=== PATIENT | male | born 1950 | race Caucasian/White ===

== ENCOUNTER 2019-06-30 12:59 | Emergency (ER) | payer OTHER ==
[2019-06-30] MEDS ORDERED: NA CHLORIDE 0.9% 500 ML ONE (13:21)
[2019-06-30 13:38] LABS: Urine Blood TRACE (NEG); Urine Glucose NEGATIVE (NEG); Urine Protein 1+ (NEG); Urine Specific Gravity 1.025 (1.005-1.030)
--- NOTE | 2019-06-30 14:00 | RAD REPORT ---
EXAM DESCRIPTION: CT - Ct Stroke Brain Wo Cont - 06/30/2019 1:33 pm CLINICAL HISTORY: Vertigo COMPARISON: 2017 TECHNIQUE: Computed axial tomography of the head was obtained. All CT scans are performed using dose optimization technique as appropriate and may include automated exposure control or mA/KV adjustment according to patient size. FINDINGS: An intracranial bleed is not seen . The ventricles are mildly more prominent than on the prior exam. Prominent cerebral atrophy is also s een. No extra-axial fluid collection is noted. Mild to moderate low-density within periventricular white matter likely ischemic changes secondary to small vessel disease Fluid within the sinuses/ mastoids is not seen. IMPRESSION: Ventricles are mildly more prominent on the prior exam. This may simply be secondary to progression in white matter atrophy. Normal pressure hydrocephalus can also result in this appearance should be correlated clinically. Dr Andersen of the emergency room was notified at 1:41 p.m. on 06/30/2019
[2019-06-30 14:02] LABS: Absolute Lymphocytes (CBC) 1.6 K/uL (0.7-4.9); Basophils % 0.7 % (0-1.3); Hematocrit 43.2 % (39.6-49.0); Lymphocytes % 19.7 % (15.3-44.8); MPV 10.1 fL (7.6-11.3); RBC Red Blood Cell Count 4.36 M/uL (4.33-5.43)
[2019-06-30 14:04] LABS: Protime INR 1.04
[2019-06-30 14:15] LABS: ALT/SGPT 23 U/L (12-78); AST/SGOT 29 U/L (15-37); Albumin 3.8 g/dL (3.4-5.0); Alkaline Phosphatase 58 U/L (45-117); BUN Blood Urea Nitrogen 9 mg/dL (7-18); Bicarbonate 29 mmol/L (21-32); Bilirubin Direct 0.2 mg/dL (0-0.2); Bilirubin Total 0.9 mg/dL (0.2-1.0); Glucose Level 159 mg/dL (74-106); Lipase 195 U/L (73-393); Magnesium 2.1 mg/dL (1.8-2.4); Potassium 3.7 mmol/L (3.5-5.1); Protein, Total 7.7 g/dL (6.4-8.2); Sodium Level 140 mmol/L (136-145); Troponin (Emerg Dept Use Only) < 0.02 ng/mL (0.0-0.045)
--- NOTE | 2019-06-30 14:19 | RAD REPORT ---
EXAM DESCRIPTION: Marielos Single View06/30/2019 1:54 pm CLINICAL HISTORY: Hypertension COMPARISON: none FINDINGS: The lungs appear clear of acute infiltrate. The heart is normal size IMPRESSION: No acute abnormalities displayed
[2019-06-30 14:53] LABS: Urine Amorphous Sediment 2+ /HPF (NONE SEEN); Urine Bacteria 20-50 /HPF (NONE SEEN); Urine Culture Reflex Order REFLEXED; Urine Mucus 3+ /HPF (NONE SEEN); Urine RBC <5 /HPF (NONE SEEN)
--- NOTE | 2019-06-30 15:25 | RAD REPORT ---
EXAM DESCRIPTION: CTHead angio06/30/2019 3:06 pm CLINICAL HISTORY: Vascular dementia/dizziness/confusion/possible CVA COMPARISON: None TECHNIQUE: CT angiogram of the head was obtained. 3D MIPS reconstruction performed. All CT scans are performed using dose optimization technique as appropriate and may include automated exposure control or mA/KV adjustment according to patient size. FINDINGS: The basilar tip is bulbous. Internal carotid, anterior cerebral, middle cerebral and posterior cerebral arteries are normal calib er. An aneurysm is not seen. A significant stenosis is not noted. IMPRESSION: No significant abnormalities displayed.
--- NOTE | 2019-06-30 15:30 | RAD REPORT ---
EXAM DESCRIPTION: Alonzo Angio06/30/2019 3:05 pm CLINICAL HISTORY: Vascular dementia/dizziness/confusion/possible CVA COMPARISON: None TECHNIQUE: 50 cc Isovue 370 was administered intravenously. 3D MIP reconstruction performed All CT scans are performed using dose optimization technique as appropriate and may include automated exposure control or mA/KV adjustment according to patient size. FINDINGS: Mild plaque within the common carotid, internal carotid and external carotid arteries bila terally Vertebral arteries are codominant without an abnormality IMPRESSION: Mild plaque within the carotid arteries. No significant abnormality noted NASCET criteria used. Mild 0-49% stenosis Moderate 50-69% stenosis Severe 70-99% stenosis
--- NOTE | 2019-06-30 15:35 | EDPHYS ---
Physician Documentation [facility] Name: Praful Justin Age: 68 yrs Sex: Male : 1950 Arrival Date: 06/30/2019 Time: 13:00 Bed 6 Private MD: Garfield Carrillo; Elvin Pittman F ED Physician Preston Andersen HPI: 06/30 13:24 This 68 yrs old Male presents to ER via Ambulatory with complaints of Nausea, rn Vision Problem, Headache. 13:24 The patient presents to the emergency department with nausea. Onset: The rn symptoms/episode began/occurred 2 day(s) ago. Possible causes: unknown. The symptoms are aggravated by nothing. The symptoms are alleviated by nothing. Severity of symptoms: At their worst the symptoms were moderate in the emergency department the symptoms have improved. The patient has not experienced similar symptoms in the past. Family reports has vascular dementia, for last 2 days has been a little more confused than usual, forgetful. Began with vertigo like symptoms with room spinning and nausea while at rest. No longer happening. Denies pain. No chest pain/sob/abd pain/urinary symptoms. Reports just feels off. No vomiting/diarrhea. + decreased PO intake, patient states just doesn't have appetite. . Historical: - Allergies: 13:52 No Known Allergies; jl7 - Home Meds: 13:52 escitalopram oxalate 5 mg oral tab 1 tab once daily [Active]; memantine 10 mg oral tab jl7 1 tab 2 times per day [Active]; lisinopril 20 mg Oral tab 1 tab once daily [Active]; donepezil 10 mg oral tab 1 tab [Active]; rosuvastatin 20 mg oral tab 1 tab once daily [Active]; Januvia 100 mg oral tab 1 tab once daily [Active]; - PMHx: 13:52 Diabetes - NIDDM; Alzheimers; Hypertension; High Cholesterol; jl7 - PSHx: 13:52 splenectomy; jl7 - Immunization history:: Adult Immunizations up to date. - Social history:: Smoking status: Patient/guardian denies using tobacco. - Family history:: not pertinent. - Ebola Screening: : No symptoms or risks identified at this time. - Hospitalizations: : No recent hospitalization is reported. ROS: 13:24 Constitutional: Negative for fever, chills, and weight loss, Eyes: Negative for injury, rn pain, redness, and discharge, Neck: Negative for injury, pain, and swelling, Cardiovascular: Negative for chest pain, palpitations, and edema, Respiratory: Negative for shortness of breath, cough, wheezing, and pleuritic chest pain, Abdomen/GI: Negative for abdominal pain, vomiting, diarrhea, and constipation, Back: Negative for injury and pain, : Negative for injury, bleeding, discharge, and swelling, MS/Extremity: Negative for injury and deformity, Skin: Negative for injury, rash, and discoloration, Neuro: Negative for numbness, tingling, and seizure. Exam: 13:24 Constitutional: This is a well developed, well nourished patient who is awake, alert, rn and in no acute distress. Ambulatory to room without difficulty or assistance. Head/Face: Normocephalic, atraumatic. Eyes: Pupils equal round and reactive to light, extra-ocular motions intact. Lids and lashes normal. Conjunctiva and sclera are non-icteric and not injected. Cornea within normal limits. Periorbital areas with no swelling, redness, or edema. ENT: dry MM Cardiovascular: Bradycardic, no pulse deficits. Respiratory: No increased work of breathing, no retractions or nasal flaring. Abdomen/GI: soft, non-tender, non-distended, no rebound or guarding Skin: warm, dry MS/ Extremity: Pulses equal, no cyanosis. Neurovascular intact. Full, normal range of motion. Equal circumference. Neuro: Awake and alert, GCS 15, oriented to person, place, time, and situation. Cranial nerves II-XII grossly intact. Motor strength 5/5 in all extremities. Sensory grossly intact. Cerebellar exam normal. Normal gait. 15:40 ECG was reviewed by the Attending Physician. rn Vital Signs: 13:17 BP 178 / 91; Pulse 58; Resp 16; Temp 97.5; Pulse Ox 99% on R/A; iw 13:52 BP 152 / 87; Pulse 57; Resp 19 S; Pulse Ox 99% on R/A; Pain 0/10; jl7 15:00 BP 151 / 83; Pulse 58; Resp 19 S; Pulse Ox 99% on R/A; jl7 15:57 BP 159 / 89; Pulse 59; Resp 16 S; Pulse Ox 100% on R/A; jl7 MDM: 13:05 Patient medically screened. rn 14:55 Differential diagnosis: vascular dementia, NPH, UTI, dehydration. Data reviewed: vital rn signs, nurses notes, lab test result(s), EKG, radiologic studies, CT scan. Counseling: I had a detailed discussion with the patient and/or guardian regarding: the historical points, exam findings, and any diagnostic results supporting the discharge/admit diagnosis, lab results, radiology results. ED course: Normal w/u so far, will get CT angio head/neck and then reeval after fluids. So far, only dehydration given 2+ ketones, updated family. . 15:33 ED course: Pt improved with just fluids, ambulatory to bathroom, smiling and more rn active, CT angio head and neck without acute or significant findings.. 15:40 Test interpretation: by ED physician or midlevel provider: ECG, plain radiologic rn studies, CXR neg for acute infiltrate. 06/30 13:17 Order name: Hepatic Function; Complete Time: 14:31 rn 06/30 13:17 Order name: Lipase; Complete Time: 14:31 rn 06/30 13:17 Order name: Magnesium; Complete Time: 14:31 rn 06/30 13:17 Order name: Troponin (emerg Dept Use Only); Complete Time: 14:31 rn 06/30 13:17 Order name: Basic Metabolic Panel; Complete Time: 14:31 rn 06/30 13:17 Order name: CBC with Diff; Complete Time: 14:31 rn 06/30 13:17 Order name: Protime (+inr); Complete Time: 14:31 rn 06/30 13:17 Order name: Ptt, Activated; Complete Time: 14:31 rn 06/30 13:17 Order name: CT Stroke Brain w/o Contrast; Complete Time: 14:31 rn 06/30 13:17 Order name: Urine Microscopic Only; Complete Time: 15:33 rn 06/30 13:17 Order name: Flu; Complete Time: 15:33 rn 06/30 13:35 Order name: Urine Dipstick--Ancillary (enter results); Complete Time: 13:52 em1 06/30 13:57 Order name: Glucose, Ancillary Testing; Complete Time: 14:31 EDAZ 06/30 14:54 Order name: Urine Culture EDAZ 06/30 13:17 Order name: Stroke CXR 1 View; Complete Time: 14:31 rn 06/30 13:17 Order name: EKG; Complete Time: 13:18 rn 06/30 13:17 Order name: Accucheck; Complete Time: 13:54 rn 06/30 13:17 Order name: Cardiac monitoring; Complete Time: 13:55 rn 06/30 13:17 Order name: EKG - Nurse/Tech; Complete Time: 13:32 rn 06/30 13:17 Order name: IV Saline Lock; Complete Time: 13:55 rn 06/30 13:17 Order name: Labs collected and sent; Complete Time: 13:55 rn 06/30 13:17 Order name: NPO; Complete Time: 13:40 rn 06/30 13:17 Order name: O2 Per Protocol; Complete Time: 13:40 rn 06/30 13:17 Order name: O2 Sat Monitoring; Complete Time: 13:40 rn 06/30 13:17 Order name: Stroke Swallow Screen; Complete Time: 13:55 rn 06/30 13:17 Order name: Urine Dipstick-Ancillary (obtain specimen); Complete Time: 13:34 rn 06/30 14:32 Order name: CT Head Angio; Complete Time: 15:33 rn 06/30 14:32 Order name: CT Neck Angio; Complete Time: 15:33 rn EC:40 Rate is 53 beats/min. Rhythm is regular. QRS [place] is Normal. DE interval is normal. QRS rn interval is normal. QT interval is normal. No Q waves. T waves are Normal. No ST changes noted. Clinical impression: Sinus bradycardia. Interpreted by me. Reviewed by me. Administered Medications: 13:45 Drug: NS 0.9% 500 ml Route: IV; Rate: bolus; Site: right antecubital; jl7 14:30 Follow up: IV Status: Completed infusion; IV Intake: 500ml jl7 Disposition: 06/30/19 15:34 Discharged to Home. Impression: Dehydration, Weakness, Vascular dementia. - Condition is Stable. - Discharge Instructions: Dehydration, Adult, Weakness, Vascular Dementia. - Medication Reconciliation Form, Thank You Letter, Antibiotic Education, Prescription Opioid Use form. - Follow up: Elvin Pittman; When: As needed; Reason: Recheck today's complaints, Re-evaluation by your physician. - Problem is new. - Symptoms have improved. Signatures: Dispatcher [employer] EDMS Preston Andersen MD MD rn Leal, Jahala, RN RN jl7 Corrections: (The following items were deleted from the chart) 15:57 15:34 06/30/2019 15:34 Discharged to Home. Impression: Dehydration; Weakness; Vascular jl7 dementia. Condition is Stable. Discharge Instructions: Dehydration, Adult, Weakness, Vascular Dementia. Forms are Medication Reconciliation Form, Thank You Letter, Antibiotic Education, Prescription Opioid Use. Follow up: Elvin Pittman; When: As needed; Reason: Recheck today's complaints, Re-evaluation by your physician. Problem is new. Symptoms have improved. rn
--- NOTE | 2019-06-30 15:35 | ER ---
Nurse's Notes [facility] Name: Praful Justin Age: 68 yrs Sex: Male : 1950 Arrival Date: 06/30/2019 Time: 13:00 Bed 6 Private MD: Garfield Carrillo; Elvin Pittman F Diagnosis: Dehydration;Weakness;Vascular dementia Presentation: 06/30 13:15 Presenting complaint: Patient states: has been feeling nauseated since Tuesday, iw Tuesday had an episode of dizziness/vertigo while watching TV, the room started to spin, also was disoriented and confused, has hx of vascular dementia, denies fever, vomiting or diarrhea. Transition of care: patient was not received from another setting of care. Onset of symptoms was June 27, 2019. Risk Assessment: Do you want to hurt yourself or someone else? Patient reports no desire to harm self or others. Initial Sepsis Screen: Does the patient meet any 2 criteria? No. Patient's initial sepsis screen is negative. Does the patient have a suspected source of infection? No. Patient's initial sepsis screen is negative. Care prior to arrival: None. 13:15 Method Of Arrival: Ambulatory iw 13:15 Acuity: LEONOR 3 iw Triage Assessment: 15:00 General: Appears in no apparent distress. Behavior is calm, cooperative, appropriate jl7 for age. GI: Reports nausea. Historical: - Allergies: 13:52 No Known Allergies; jl7 - Home Meds: 13:52 escitalopram oxalate 5 mg oral tab 1 tab once daily [Active]; memantine 10 mg oral tab jl7 1 tab 2 times per day [Active]; lisinopril 20 mg Oral tab 1 tab once daily [Active]; donepezil 10 mg oral tab 1 tab [Active]; rosuvastatin 20 mg oral tab 1 tab once daily [Active]; Januvia 100 mg oral tab 1 tab once daily [Active]; - PMHx: 13:52 Diabetes - NIDDM; Alzheimers; Hypertension; High Cholesterol; jl7 - PSHx: 13:52 splenectomy; jl7 - Immunization history:: Adult Immunizations up to date. - Social history:: Smoking status: Patient/guardian denies using tobacco. - Family history:: not pertinent. - Ebola Screening: : No symptoms or risks identified at this time. - Hospitalizations: : No recent hospitalization is reported. Screenin:35 The patient has not been NPO before screening. The patient is currently on the jl7 following diet: Regular The patient is alert, able to follow commands. The patient does not exhibit slurred or garbled speech The patient is not exhibiting difficulty speaking. The patient does not exhibit difficulty understanding words. The patient is able to swallow own secretions with no drooling or need for suction. Patient tolerated one teaspoon of water. No drooling, immediate coughing, gurgling, or clearing of the throat was noted. The patient tolerated 90mL of water. No drooling, immediate coughing, gurgling, or clearing of the throat was noted. The patient passed the bedside swallow screening. Oral medications may be given as ordered. Contact Physician for further diet orders. Provider notified of bedside swallow screening results: Preston Andersen MD. 13:35 Abuse screen: Denies threats or abuse. Denies injuries from another. Nutritional jl7 screening: No deficits noted. Tuberculosis screening: No symptoms or risk factors identified. Fall Risk No fall in past 12 months (0 pts). Secondary diagnosis (15 points) Alzheimer's, IV access (20 points). Ambulatory Aid- None/Bed Rest/Nurse Assist (0 pts). Gait- Normal/Bed Rest/Wheelchair (0 pts) Mental Status- Oriented to own ability (0 pts). Total Bowie Fall Scale indicates Low Risk Score (25-44 pts). Fall prevention measures have been instituted. Side Rails Up X 2 Placed close to Nursing Station Frequent Obs/Assesments occuring Family Present and informed to notify staff if they need to leave bedside As available Patient and Family Educated on Fall Prevention Program and strategies. Assessment: 13:35 General: Appears in no apparent distress. uncomfortable, Behavior is calm, cooperative, jl7 appropriate for age. Pain: Denies pain. Neuro: Level of Consciousness is awake, alert, obeys commands, Oriented to person, place, situation, Speech is normal, Facial symmetry appears normal. Cardiovascular: Patient's skin is warm and dry. Respiratory: Airway is patent Respiratory effort is even, unlabored, Respiratory pattern is regular, symmetrical. GI: Abdomen is flat, non-distended, Reports nausea. Derm: Skin is pink, warm \T\ dry. 15:00 Reassessment: Patient appears in no apparent distress at this time. No changes from [facility] previously documented assessment. Patient and/or family updated on plan of care and expected duration. Pain level reassessed. Respirations even and unlabored, no signs of distress noted at this time, family remains at bedside. 15:35 Reassessment: Dr. Andersen at bedside discussing results and plan of care. 7 Vital Signs: 13:17 BP 178 / 91; Pulse 58; Resp 16; Temp 97.5; Pulse Ox 99% on R/A; iw 13:52 BP 152 / 87; Pulse 57; Resp 19 S; Pulse Ox 99% on R/A; Pain 0/10; jl7 15:00 BP 151 / 83; Pulse 58; Resp 19 S; Pulse Ox 99% on R/A; jl7 15:57 BP 159 / 89; Pulse 59; Resp 16 S; Pulse Ox 100% on R/A; jl7 ED Course: 13:00 Patient arrived in ED. as 13:02 Garfield Carrillo DO is Private Physician. as 13:02 Elvin Pittman MD is Private Physician. as 13:05 Preston Andersen MD is Attending Physician. rn 13:05 Nabeel James, SACHI is PHCP. pm1 13:15 Vicky Huertas, SUSAN is Primary Nurse. [facility] 13:17 Triage completed. iw 13:17 Arm band placed on. iw 13:33 CT completed. Patient tolerated procedure well. Patient moved back from CT. mw3 13:33 CT Stroke Brain w/o Contrast In Process Unspecified. EDMS 13:35 Patient has correct armband on for positive identification. Bed in low position. Call [facility] light in reach. Side rails up X2. channel lip stiffener insoles on. Pulse ox on. NIBP on. Warm blanket given. 13:35 Initial lab(s) drawn, by me, sent to lab. EKG done, by ED staff, reviewed by Preston Andersen MD. Inserted saline lock: 20 gauge in right antecubital area, using aseptic technique. Blood collected. 13:54 Stroke CXR 1 View In Process Unspecified. EDMS 15:05 CT Head Angio In Process Unspecified. EDMS 15:05 CT Neck Angio In Process Unspecified. EDMS 15:05 CT completed. Patient tolerated procedure well. Patient moved back from CT. bq 15:34 Elvin Pittman MD is Referral Physician. rn 15:57 No provider procedures requiring assistance completed. IV discontinued, intact, jl7 bleeding controlled, No redness/swelling at site. Pressure dressing applied. Administered Medications: 13:45 Drug: NS 0.9% 500 ml Route: IV; Rate: bolus; Site: right antecubital; jl7 14:30 Follow up: IV Status: Completed infusion; IV Intake: 500ml jl7 Intake: 14:30 IV: 500ml; Total: 500ml. jl7 Outcome: 15:34 Discharge ordered by MD. rn 15:57 Discharged to home ambulatory. jl7 15:57 Condition: stable 15:57 Discharge instructions given to patient, family, Instructed on discharge instructions, follow up and referral plans. Demonstrated understanding of instructions, follow-up care. 15:57 Patient left the ED. jl7 Addendum: 07/04/2019 09:25 Addendum: Culture Results: Positive urine culture. pt had no urinary s/s at time of i w visit, was tod to follow up with PCP at discharge, instructions given to family Patient was not prescribed antibiotics at discharge. Report given to UYEN for further evaluation and then to jacker feeder for follow up with patient. Signatures: Dispatcher [employer] EDMS Carine Bashir Amelia as Williams, Irene, Preston Sage RN, MD MD rn Marinas, Patrick, COAL BRIQUETTE MACHINE OPERATOR COAL BRIQUETTE MACHINE OPERATOR pm1 Vicky Huertas RN RN jl7 Cristal Gurrola mw3
[2019-06-30 16:03] VITALS: TEMP 97.5
[2019-06-30 16:07] VITALS: BP 159/89; O2SAT 100
--- NOTE | 2019-06-30 19:30 | EKG ---
Test Date: 2019-06-30 Test Time: 13:16:56 Perfusionist: HITESH MEASUREMENT RESULTS: Intervals: Rate: 53 NH: 182 QRSD: 80 QT: 446 QTc: 418 [place]: P: 46 NH: 182 QRS: 50 T: 69 INTERPRETIVE STATEMENTS: Sinus bradycardia Otherwise normal ECG No previous ECG available for comparison Electronically Signed On 06-30-19 19:29:19 CDT by Saleem Rivers
== END 2019-06-30 15:57 | disposition home or self-care (01) ==
LOC: ER 12:59
DX: E86.0 Dehydration (principal); R53.1 Weakness; F01.50 Vascular dementia, unspecified severity, without behavioral disturbance, psychotic disturbance, mood disturbance, and anxiety; I10 Essential (primary) hypertension; E11.9 Type 2 diabetes mellitus without complications; E78.00 Pure hypercholesterolemia, unspecified; G30.9 Alzheimer's disease, unspecified
CPT/HCPCS: 93005; 87088; 85025; 87086; 80048; 36415; 83735; 85610; 82947; 80076; 85730; 87077; 87186; 84484; 83690; 87804 ×2; 70496; 70498; 70450; 71045; 96360; 99285; Q9967; J7040; 81003; 81015